=== PATIENT | female | born 1955 | race American Indian/Alaskan Native ===

== ENCOUNTER 2016-12-29 19:26 | Emergency (ER) | payer BC ==
[2016-12-29] MEDS ORDERED: MAGNESIUM SULFATE 2GM/50ML 2 GM/50 ML BAG IV ONE ×2 (19:46→19:56)
[2016-12-29] MEDS ORDERED: REGLAN ONE (19:46)
[2016-12-29] MEDS ORDERED: BENADRYL ONE (19:47)
[2016-12-29] MEDS ORDERED: BENADRYL IV ONE (19:54)
[2016-12-29] MEDS ORDERED: REGLAN IV ONE (19:54)
[2016-12-29] MEDS ORDERED: TORADOL IV ONE (20:43)
[2016-12-29 20:48] LABS: Basophils % (Auto) 0.3 % (0.0-1.8); Eosinophils % (Auto) 1.1 % (0.0-4.3); Hematocrit 36.5 % (30.3-42.9); Hemoglobin 11.5 gm/dl (10.1-14.3); Mean Corpuscular HGB Conc 32 % (30-34); Mean Corpuscular Volume 82 fl (79-97); Platelet Count 239 K/mm3 (140-440); Red Blood Count 4.46 M/mm3 (3.65-5.03); White Blood Count 7.4 K/mm3 (4.5-11.0)
--- NOTE | 2016-12-29 20:48 | Cat Scan Report ---
FINAL REPORT PROCEDURE: CT HEAD/BRAIN WO CON TECHNIQUE: Computerized tomography of the head was performed without contrast material. HISTORY: Headache COMPARISON: No prior studies are available for comparison. FINDINGS: Skull and scalp: Normal. Paranasal sinuses: Normal. Ventricles and subarachnoid spaces: Normal. Cerebrum: No evidence of hemorrhage, acute infarction or mass. There are basal ganglia calcifications. Cerebellum and brainstem: No evidence of hemorrhage, acute infarction or mass. Vasculature: Normal. Comments: None. IMPRESSION: No acute intracranial abnormality.
[2016-12-29 20:57] LABS: INR 0.86 (0.87-1.13)
[2016-12-29 20:58] LABS: Partial Thromboplastin Time 26.6 Sec. (24.2-36.6)
[2016-12-29 20:59] LABS: Mean Corpuscular Hemoglobin 26 pg (28-32)
[2016-12-29 21:03] LABS: Anion Gap 15 mmol/L; Blood Urea Nitrogen 14 mg/dL (7-17); Calcium 9.4 mg/dL (8.4-10.2); Carbon Dioxide 31 mmol/L (22-30); Chloride 97.5 mmol/L (98-107); Glucose 133 mg/dL (65-100); Potassium 3.7 mmol/L (3.6-5.0); Sodium 140 mmol/L (137-145)
--- NOTE | 2016-12-29 21:22 | Emergency Department Report ---
ED Headache HPI - General Chief Complaint: Headache Stated Complaint: NASH/HYPERTENSION Time Seen by Provider: 12/29/16 20:25 Source: patient Exam Limitations: no limitations - History of Present Illness Initial Comments: 61-year-old female with a past medical history of diabetes, hypertension, and elevated cholesterol presents to the hospital complaining of headache. Headaches last night on the right side of her forehead and parietal area. Pain was initially intermittent but became more persistent and severe today. Patient states pain is greater than 10. No aggravating or alleviating factors reported. Positive nausea without vomiting, photophobia, blurred vision, dizziness, focal weakness, focal numbness, neck stiffness, or fever. Patient has been compliant with all her medications including her blood pressure medication. Denies previous history of headaches, migraines, or recent trauma. Allergies/Adverse Reactions: Allergies clonidine HCl [From Catapres] Adverse Reaction (Severe, Unverified 06/05/13 08: 15) CAUSES SALIVA TO FOAM metronidazole [From Flagyl] Adverse Reaction (Mild, Unverified 06/05/13 08:14) Nausea Metronidazole HCl [From Flagyl] Adverse Reaction (Mild, Unverified 06/05/13 08: 14) Nausea Home Medications: Ambulatory Orders Clindamycin [Clindamycin CAP] 300 mg PO Q6H #40 capsule 06/29/15 Loratadine [Claritin] 10 mg PO DAILY #30 tablet 06/29/15 Prednisone [predniSONE 10 mg (6-Day Pack, 21 Tabs)] 10 mg PO .TAPER #1 tab.ds.pk 06/29/15 Butalb/Acetamin/Caff 50-325-40 [Fioricet] 1 each PO Q4H PRN #30 tablet 12/29/16 Ibuprofen [Motrin 600 MG tab] 600 mg PO Q8H PRN #30 tablet 12/29/16 Ondansetron [Zofran Odt] 4 mg PO Q8HR PRN #20 tab.rapdis 12/29/16 ED Review of Systems ROS: Stated complaint: NASH/HYPERTENSION Other details as noted in HPI Comment: All other systems reviewed and negative Other: Constitutional: No fevers chills Eyes: No eye pain visual changes ENT: No ear pain or throat pain Neck: Denies pain Respiratory: Denies cough wheezing shortness of breath Cardiovascular: Denies chest pain, palpitations, syncope GI: Denies abdominal pain, vomiting, diarrhea : Denies dysuria Musculoskeletal: Denies back pain, joint swelling Skin: Denies rash, lesions, erythema Neurologic: As per HPI Psychiatric: Denies suicidal ideation, hallucinations ED Past Medical Hx - Past Medical History Hx Hypertension: Yes Hx Diabetes: Yes Additional medical history: thyroid -chol,glaucoma,cataracts - Surgical History Hx Coronary Stent: No Hx Open Heart Surgery: No Hx Pacemaker: No Hx Internal Defibrillator: No Hx Cholecystectomy: No Hx Appendectomy: No Hx Breast Surgery: No - Social History Smoking Status: Never Smoker Substance Use Type: None - Medications Home Medications: Home Medications Medication Instructions Recorded Confirmed Last Taken Type Clindamycin [Clindamycin CAP] 300 mg PO Q6H #40 capsule 06/29/15 Unknown Rx Loratadine [Claritin] 10 mg PO DAILY #30 tablet 06/29/15 Unknown Rx Prednisone [predniSONE 10 mg 10 mg PO .TAPER #1 tab.ds.pk 06/29/15 Unknown Rx (6-Day Pack, 21 Tabs)] Butalb/Acetamin/Caff 50-325-40 1 each PO Q4H PRN #30 tablet 12/29/16 Unknown Rx [Fioricet] Ibuprofen [Motrin 600 MG tab] 600 mg PO Q8H PRN #30 tablet 12/29/16 Unknown Rx Ondansetron [Zofran Odt] 4 mg PO Q8HR PRN #20 tab.rapdis 12/29/16 Unknown Rx ED Physical Exam - General Limitations: No Limitations - Other Other exam information: General: No limitations, patient is alert in no acute distress Head exam: Atraumatic, normocephalic Eyes exam: Normal appearance, pupils equal reactive to light, extraocular movements intact ENT: Moist mucous membrane, normal oropharynx Neck exam: Normal inspection, full range of motion, no meningismus nontender Respiratory exam: Clear to auscultation bilateral, no wheezes, rales, crackles Cardiovascular: Normal rate and rhythm, normal heart sounds Abdomen: Soft, nondistended, and nontender, with normal bowel sounds, no rebound, or guarding Extremity: Full range of motion normal inspection no deformity Back: Normal Inspection, full range of motion, no tenderness Neurologic: Alert, oriented x3, cranial nerves intact, no motor or sensory deficit Psychiatric: normal affect, normal mood Skin: Warm, dry, intact ED Course Vital Signs 08/17/17 08/17/17 08/17/17 19:26 20:24 21:10 Temperature 98.6 F Pulse Rate 61 67 Respiratory 18 15 18 Rate Blood Pressure 206/105 Blood Pressure 160/82 [Left] O2 Sat by Pulse 100 94 Oximetry 12/29/16 21:59 Temperature Pulse Rate 63 Respiratory 19 Rate Blood Pressure Blood Pressure 156/68 [Left] O2 Sat by Pulse 94 Oximetry - Reevaluation(s) Reevaluation #1: 12/29/16 20:40 Patient received magnesium, Reglan, and Benadryl prior to my evaluation and reports some improvement in pain. Complaint of persistent headache with coughing. Toradol ordered. BP 160/82 ED Medical Decision Making - Lab Data Result diagrams: 12/29/16 20:33 12/29/16 20:33 Lab Results 12/29/16 12/29/16 12/29/16 Range/Units 20:33 20:33 20:33 WBC 7.4 (4.5-11.0) K/mm3 RBC 4.46 (3.65-5.03) M/mm3 Hgb 11.5 (10.1-14.3) gm/dl Hct 36.5 (30.3-42.9) % MCV 82 (79-97) fl MCH 26 L (28-32) pg MCHC 32 (30-34) % RDW 16.0 H (13.2-15.2) % Plt Count 239 (140-440) K/mm3 Lymph % (Auto) 40.1 H (13.4-35.0) % Sherman % (Auto) 10.5 H (0.0-7.3) % Eos % (Auto) 1.1 (0.0-4.3) % Baso % (Auto) 0.3 (0.0-1.8) % Lymph # 3.0 (1.2-5.4) K/mm3 Sherman # 0.8 (0.0-0.8) K/mm3 Eos # 0.1 (0.0-0.4) K/mm3 Baso # 0.0 (0.0-0.1) K/mm3 Seg Neutrophils % 48.0 (40.0-70.0) % Seg Neutrophils # 3.6 (1.8-7.7) K/mm3 PT 12.2 (12.2-14.9) Sec. INR 0.86 L (0.87-1.13) APTT 26.6 (24.2-36.6) Sec. Sodium 140 (137-145) mmol/L Potassium 3.7 (3.6-5.0) mmol/L Chloride 97.5 L (98-107) mmol/L Carbon Dioxide 31 H (22-30) mmol/L Anion Gap 15 mmol/L BUN 14 (7-17) mg/dL Creatinine 0.7 (0.7-1.2) mg/dL Estimated GFR > 60 ml/min BUN/Creatinine Ratio 20.00 % Glucose 133 H (65-100) mg/dL Calcium 9.4 (8.4-10.2) mg/dL Urine Color (Yellow) Urine Turbidity (Clear) Urine pH (5.0-7.0) Ur Specific [place] (1.003-1.030) Urine Protein (Negative) mg/dL Urine Glucose (UA) (Negative) mg/dL Urine Ketones (Negative) mg/dL Urine Blood (Negative) Urine Nitrite (Negative) Urine Bilirubin (Negative) Urine Urobilinogen (<2.0) mg/dL Ur Leukocyte Esterase (Negative) Urine WBC (Auto) (0.0-6.0) /HPF Urine RBC (Auto) (0.0-6.0) /HPF U Epithel Cells (Auto) (0-13.0) /HPF Urine Mucus /HPF // Range/Units 22:24 WBC (4.5-11.0) K/mm3 RBC (3.65-5.03) M/mm3 Hgb (10.1-14.3) gm/dl Hct (30.3-42.9) % MCV (79-97) fl MCH (28-32) pg MCHC (30-34) % RDW (13.2-15.2) % Plt Count (140-440) K/mm3 Lymph % (Auto) (13.4-35.0) % Sherman % (Auto) (0.0-7.3) % Eos % (Auto) (0.0-4.3) % Baso % (Auto) (0.0-1.8) % Lymph # (1.2-5.4) K/mm3 Sherman # (0.0-0.8) K/mm3 Eos # (0.0-0.4) K/mm3 Baso # (0.0-0.1) K/mm3 Seg Neutrophils % (40.0-70.0) % Seg Neutrophils # (1.8-7.7) K/mm3 PT (12.2-14.9) Sec. INR (0.87-1.13) APTT (24.2-36.6) Sec. Sodium (137-145) mmol/L Potassium (3.6-5.0) mmol/L Chloride (98-107) mmol/L Carbon Dioxide (22-30) mmol/L Anion Gap mmol/L BUN (7-17) mg/dL Creatinine (0.7-1.2) mg/dL Estimated GFR ml/min BUN/Creatinine Ratio % Glucose (65-100) mg/dL Calcium (8.4-10.2) mg/dL Urine Color Yellow (Yellow) Urine Turbidity Clear (Clear) Urine pH 7.0 (5.0-7.0) Ur Specific [place] 1.017 (1.003-1.030) Urine Protein <15 mg/dl (Negative) mg/dL Urine Glucose (UA) Neg (Negative) mg/dL Urine Ketones Neg (Negative) mg/dL Urine Blood Neg (Negative) Urine Nitrite Neg (Negative) Urine Bilirubin Neg (Negative) Urine Urobilinogen 4.0 (<2.0) mg/dL Ur Leukocyte Esterase Neg (Negative) Urine WBC (Auto) < 1.0 (0.0-6.0) /HPF Urine RBC (Auto) 1.0 (0.0-6.0) /HPF U Epithel Cells (Auto) < 1.0 (0-13.0) /HPF Urine Mucus Few /HPF - EKG Data -: EKG Interpreted by Me (sinus rhythm rate 60 PVCs nonspecific T abnormality no stemi) - EKG Data When compared to previous EKG there are: previous EKG unavailable - Radiology Data Radiology results: report reviewed (CT head: No acute findings) - Differential Diagnosis migraine, mass, ICH, hypertensive emergency Critical Care Time: No (migraine, mass, ICH, hypertensive emergency,) Critical care attestation.: If time is entered above; I have spent that time in minutes in the direct care of this critically ill patient, excluding procedure time. ED Disposition Clinical Impression: Migraine, Uncontrolled hypertension Disposition: - TO HOME OR SELFCARE Is pt being admited?: No Does the pt Need Aspirin: No Condition: Stable Instructions: Hypertension (ED), Migraine Headache (ED) Additional Instructions: Take the medication is needed for pain and nausea. Return if symptoms worsen. Follow-up with his doctor within 2-3 days Prescriptions: Butalb/Acetamin/Caff 50-325-40 [Fioricet] 1 each PO Q4H PRN #30 tablet PRN Reason: Headache Ibuprofen [Motrin 600 MG tab] 600 mg PO Q8H PRN #30 tablet PRN Reason: Pain Ondansetron [Zofran Odt] 4 mg PO Q8HR PRN #20 tab.rapdis PRN Reason: Nausea And Vomiting Referrals: PRIMARY CARE, [Primary Care Provider] - 2-3 Days Time of Disposition: 22:59
[2016-12-29 22:44] LABS: Bilirubin,Urine NEG (Negative); Blood,Urine NEG (Negative); Ketones,Urine NEG (Negative); Leukocyte Esterase,Urine NEG (Negative); Mucus,Urine FEW /HPF; Nitrite,Urine NEG (Negative); Protein,Urine <15 mg/dL mg/dL (Negative); WBC,Urine < 1.0 /HPF (0.0-6.0)
[2016-12-30 00:05] VITALS: BP 163/89
== END 2016-12-29 23:40 | disposition home or self-care (01) ==
LOC: ED 19:26
DX: G43.909 Migraine, unspecified, not intractable, without status migrainosus (principal); I10 Essential (primary) hypertension; E11.9 Type 2 diabetes mellitus without complications; H40.9 Unspecified glaucoma; H26.9 Unspecified cataract; Z88.8 Allergy status to other drugs, medicaments and biological substances
CPT/HCPCS: 36415; 70450; 80048; 81001; 85025; 85610; 85730; 93005; 93010; 96365; 96375; 99284; J1200; J1885; J2765; J3475

== ENCOUNTER 2021-01-01 08:04 | Outpatient (CLI) | payer BC ==
--- NOTE | 2021-01-01 09:46 | XRay Report ---
XR hips BILAT 2V w/pelvis , 3 views INDICATION / CLINICAL INFORMATION: BILATERAL HIP PAIN. COMPARISON: None available. FINDINGS: No fracture or malalignment. Bilateral hip joint spaces are preserved. No evidence of femoral head os teonecrosis. SI joints and pubic symphysis are intact. Degenerative unremarkable. IMPRESSION: No significant abnormality. Signer Name: Umang Maradiaga MD Signed: 01/01/2021 9:42 AM Workstation Name: [email or web address]
== END 2021-01-01 08:05 | disposition home or self-care (01) ==
LOC: XRAY 08:04
PROVIDERS: ATTEND Internal Medicine
DX: M25.552 Pain in left hip (principal); M25.551 Pain in right hip
CPT/HCPCS: 73521

== ENCOUNTER 2021-06-28 08:07 | Outpatient (CLI) | payer BC ==
[2021-06-28 09:13] LABS: Mean Corpuscular HGB Conc 30 % (30-34); Mean Corpuscular Volume 81 fl (79-97); Platelet Count 277 K/mm3 (140-440); Red Blood Count 4.12 M/mm3 (3.65-5.03); Red Cell Distribution Width 17.2 % (13.2-15.2)
[2021-06-28 09:27] LABS: Alanine Aminotransferase 17 units/L (7-56); Albumin 4.4 g/dL (3.9-5); Blood Urea Nitrogen 12 mg/dL (7-17); Calcium 8.8 mg/dL (8.4-10.2); Chol/HDL Ratio 3.63 %; HDL Cholesterol 44 mg/dL (40-59); Hemolysis Index 2; LDL Cholesterol,Direct 96 mg/dL (50-130)
[2021-06-28 09:30] LABS: BUN/Creatinine Ratio 24; Hematocrit 33.5 % (30.3-42.9); Hemoglobin 10.1 gm/dl (10.1-14.3)
== END 2021-06-28 08:08 | disposition home or self-care (01) ==
LOC: LAB 08:07
PROVIDERS: ATTEND Internal Medicine
DX: Z00.00 Encounter for general adult medical examination without abnormal findings (principal)
CPT/HCPCS: 36415; 80053; 80061; 82306; 83036; 84443; 85027

== ENCOUNTER 2021-07-23 08:07 | Outpatient (CLI) | payer BC ==
--- NOTE | 2021-07-23 10:37 | XRay Report ---
Lumbar spine 2 views INDICATION: Low back pain IMPRESSION: There is grade 1 anterolisthesis of L4 on L5. Moderate to severe discogenic and facet art hropathy present L4-L5 and L5-S1 with mild bilateral neural foraminal stenosis at L5-S1. Signer Name: Jay Tucker MD Signed: 07/23/2021 10:32 AM Workstation Name: [id number]
--- NOTE | 2021-07-23 11:45 | XRay Report ---
Bilateral knees-3 total views INDICATION: M25.569. Chronic generalized bilateral knee pain COMPARISON: None available. IMPRESSION: No acute osseous abnormality. Normal alignment. 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 Soft tissues are unremarkable. Signer Name: Shaquille Garcia MD Signed: 07/23/2021 11:41 AM Workstation Name: [id number]
== END 2021-07-23 08:08 | disposition home or self-care (01) ==
LOC: XRAY 08:07
PROVIDERS: ATTEND Orthopaedic Surgery
DX: M17.0 Bilateral primary osteoarthritis of knee (principal); M47.817 Spondylosis without myelopathy or radiculopathy, lumbosacral region; M48.07 Spinal stenosis, lumbosacral region
CPT/HCPCS: 72100; 73565